=== PATIENT | male | born 1990 | race Caucasian/White ===

== ENCOUNTER 2017-10-08 10:24 | Emergency (ER) | payer OTHER, SELFPAY ==
[2017-10-08 10:53] VITALS: BP 148/98; PULSE 73; RESP 20; TEMP 36.8; O2SAT 98; BMI 31.0
[2017-10-08 11:29] VITALS: BP 142/90; PULSE 72; RESP 20; TEMP 36.2
--- NOTE | 2017-10-08 11:35 | ED_ITS ---
[facility] [place] Impression: URI (upper respiratory infection) Qualifiers: URI type: unspecified URI Qualified Code(s): J06.9 - Acute upper respiratory infection, unspecified Disposition: Home, Self-Care Condition on Discharge: Good Instructions: Sore Throat Additional Instructions: * Monitor Temp. Tylenol and/or Ibuprofen as needed. ER if fever is no less than 101 despite alternating Tylenol and Ibuprofen * Encourage fluids, water, Gatorade, powerade, pedialyte if infant/toddler/or child * Warm salt water gargles for throat irritation *Warm fluids *Sore throat lozenges *Sleep elevated *humidifier or vaporizer Lots of rest Increase fluids, water, Gatorade, powerade *Your throat swab was sent to lab for culture. Those results area typically sent to your primary care physician. Be sure to follow up in 2-3 days if no improvement so they can review those results and treat if necessary If you don? t have primary care I recommend you get one, but in the mean time you will have to return to a walk in clinic Follow up IMMEDIATELY for new or worsening of symptoms OR no noticeable improvement over the next 48-72 hours. 911 immediately for any life threatening symptoms such as chest pain or difficulty breathing Prescriptions: Cefdinir [Omnicef 300mg Capsule] 300 mg PO BID #20 cap Referrals: Ck Kiser MD [Primary Care Provider] - Forms: Work/School Release Time of Disposition: 11:40 Medical Decision Making - Medical Records Medical records reviewed: Yes: I reviewed the patient's medical records. Vital Signs: 10/08/17 10:53 10/08/17 11:29 Temperature 98.2 F 97.2 F L Temperature Source Temporal Artery Scan Pulse Rate 72 Pulse Rate [Right] 73 Respiratory Rate 20 20 Blood Pressure 142/90 Blood Pressure [Right Arm] 148/98 Blood Pressure Mean [Right Arm] 114 Blood Pressure Source [Right Arm] Automatic Cuff Blood Pressure Position [Right Arm] Sitting 02 Sat by Pulse Oximetry 98 Oxygen Delivery Method Room Air - Lab Data Lab results reviewed: Yes: I reviewed the patient's lab results. - Ant Inquiry Pt receiving controlled substance: No Ant was queried for this patient: No - Reevaluation(s) Time: 11:38 Reevaluation #1: Patient rapid strep test negative, patient had obvious exudate on throat, even though rapid test negative, still treating with antibiotic that cover the strep [facility] [place] - General Stated complaint: sore throat white spots on throat Mode of Arrival: Ambulatory Source of Information: Patient Limitations: No Limitations Description of Symptoms (Recalled from Triage Doc. by RN): SORE THROAT X2 DAYS HEENT Symptoms (Recalled from RN notes): Yes Resp Symptoms (Recalled from RN notes): No Skin Symptoms (Recalled from RN notes): No MS Symptoms (Recalled from RN notes): No Functional Status (Recalled from RN notes): N - History of Present Illness Provider Complaint: Patient states that he has had sore throat for several days States that he looked in the mirror and seen white blisters all over his throat and tonsils so he came in to get checked to see what it was - Related Data Previous Rx's Medication Instructions Recorded Cefdinir [Omnicef 300mg Capsule] 300 mg PO BID #20 cap 10/08/17 Allergies Allergy/AdvReac Type Severity Reaction Status Date / Time No Known Allergies Allergy Verified 10/08
[2017-10-08 14:44] LABS: UTC Strep Screen (Rapid) Negative (Negative)
== END 2017-10-08 11:42 | disposition home or self-care (01) ==
PROVIDERS: Emergency Provider Nurse Practitioner; PCP Emergency Medicine
DX: J06.9 Acute upper respiratory infection, unspecified (principal); Z72.0 Tobacco use
CPT/HCPCS: 87880; 99202

== ENCOUNTER 2020-03-15 15:02 | Emergency (ER) | payer OTHER, SELFPAY ==
--- NOTE | 2020-03-15 15:11 | XR_ITS ---
PROCEDURE: XR LUMBAR SPINE 2-3V CLINICAL INDICATION: INJURED BACK LIFTING ON A PT Lifting injury with pain COMPARISON: No exams were available for comparison FINDINGS: No fracture or dislocation. No lytic or blastic change. There is normal mineralization. The joint spaces are well-preserved. No significant degenerative/arthritic changes. No erosive changes evident. Other findings:There is straightening of the lumbar lordosis which could be due to patient positioning or muscle spasm IMPRESSION: Straightening of lumbar lordosis otherwise negative Dictated b Remi West MD 03/15/2020 15:55 Remi West MD in [place] 03/15/2020 15:55
--- NOTE | 2020-03-15 15:11 | HMH.EDUTC ---
[facility] [place] Clinical Impression: Low back strain Qualifiers: Encounter type: initial encounter Qualified Code(s): S39.012A - Strain of muscle, fascia and tendon of lower back, initial encounter Disposition: Home, Self-Care Condition on Discharge: Good Instructions: Low Back Pain, DI for Low Back Pain Additional Instructions: Go home and rest. It would be best if you rested tomorrow too. No heavy lifting. No twisting. Take the oral medications as directed. The muscle relaxer (robaxin) will make you drowsy, so don't drive or operate heavy machinery after taking it. Don't start the oral steroids (medrol dose pack) until tomorrow, since you had the shots in here today. Follow up with your regular doctor. GO TO THE ER FOR ANY WORSENING SYMPTOMS OR CONCERN, ESPECIALLY BOWEL OR BLADDER ISSUES, SADDLE AREA NUMBNESS, FEVER, ETC Prescriptions: methylPREDNISolone [Medrol] 4 mg PO DIRECTED 6 Days #21 tab.ds.pk Transmission Status: Received by [employer] Methocarbamol [Robaxin 500mg Tab] 500 mg PO BIDP PRN #30 tab PRN Reason: Muscle Spasm Transmission Status: Received by [employer] Referrals: Yonatan Hanna [Primary Care Provider] - Forms: Work/School Release Time of Disposition: 15:46 Medical Decision Making - Medical Records Medical records reviewed: No: I reviewed the patient's medical records. - Ant Inquiry Pt receiving controlled substance: No Vital Signs: 03/15/20 15:23 03/15/20 15:57 Temperature 98.3 F 98.3 F Temperature Source Oral Pulse Rate 88 Pulse Rate [Right Brachial] 88 Respiratory Rate 19 19 Blood Pressure 146/91 H Blood Pressure [Right Arm] 146/91 H Blood Pressure Mean [Right Arm] 109 Blood Pressure Source [Right Arm] Automatic Cuff Blood Pressure Position [Right Arm] Sitting 02 Sat by Pulse Oximetry 98 Oxygen Delivery Method Room Air Orders (Tests/Meds): ED MEDICATIONS Discontinued Medications Generic Name Dose Route Start Last Admin Trade Name Freq PRN Reason Stop Dose Admin Ketorolac Tromethamine 60 mg 03/15/20 15:40 03/15/20 15:54 Toradol 60mg/2ml Vial IM 03/15/20 15:41 60 mg ONCE ONE Administration Methylprednisolone Sodium Succinate 125 mg 03/15/20 15:40 03/15/20 15:54 Solu-Medrol 125mg/2ml Vial IM 03/15/20 15:41 125 mg ONCE ONE Administration [facility] [place] HPI - General Stated complaint: WC 8 low back pain Time Seen by Provider: 03/15/20 15:11 - History of Present Illness Provider Complaint: The patient states that while at work on 03/13, he started having low back pain and 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 He denies any numbness of his legs. Since then, he has continued to have low back pain and muscle spasms. - Related Data Previous Rx's Medication Instructions Recorded Methocarbamol [Robaxin 500mg Tab] 500 mg PO BIDP PRN #30 tab 03/15/20 methylPREDNISolone [Medrol] 4 mg PO DIRECTED 6 Days #21 03/15/20 tab.ds.pk Allergies Allergy/AdvReac Type Severity Reaction Status Date / Time No Known Allergies Allergy Verified 11/10/18 19:48 [facility] History - Hepatitis A Screen Attestation statement:: This patient has been screened for Hepatitis A risk factors. I have reviewed the patient's past medical history: Yes - Social History Smoking Status: Current every day smoker Tobacco Type: cigarettes # Packs/Day (cigarettes): 1 Alcohol Intake: never Alcohol Intake Frequency:: a few times a week Occupational Status: employed ROS Obtained: Yes All systems reviewed & no additional complaints - Constitutional Constitutional: Denies chills, Denies fever(s), Denies poor appetite, Denies malaise - Eyes Eyes: Denies eye discharge - ENT Ears, Nose, Mouth, and Throat: Denies dizziness, Denies otalgia, Denies sore throat - Cardiovascular Cardiovascular: Denies chest pain - Respiratory Respiratory: No chest congestion, No cough - G
[2020-03-15 15:23] VITALS: BP 146/91; PULSE 88; RESP 19; TEMP 36.8; O2SAT 98; BMI 34.7
[2020-03-15 15:57] VITALS: BP 146/91; PULSE 88; RESP 19; TEMP 36.8; O2SAT 98
== END 2020-03-15 16:07 | disposition home or self-care (01) ==
PROVIDERS: Emergency Provider Nurse Practitioner Family; PCP Nurse Practitioner Family
DX: S39.012A Strain of muscle, fascia and tendon of lower back, initial encounter (principal); X50.0XXA Overexertion from strenuous movement or load, initial encounter; Y92.69 Other specified industrial and construction area as the place of occurrence of the external cause; Y99.0 Civilian activity done for income or pay; F17.210 Nicotine dependence, cigarettes, uncomplicated
CPT/HCPCS: 72100; 96372; 99202

== ENCOUNTER 2020-04-25 18:34 | Emergency (ER) | payer MEDICAID, SELFPAY ==
[2020-04-25 18:55] VITALS: BP 143/87; PULSE 88; RESP 19; TEMP 36.8; O2SAT 98; BMI 34.7
[2020-04-25 19:01] VITALS: BP 143/87; PULSE 88; RESP 19; TEMP 36.8; O2SAT 98
--- NOTE | 2020-04-25 19:04 | HMH.EDUTC ---
[facility] [place] Disposition Clinical Impression: Ingrown nail of great toe of left foot, Viral syndrome Disposition: Home, Self-Care Condition on Discharge: Good Instructions: DI for Ingrown Toenail, DI for Viral Syndrome Additional Instructions: Follow up with Dr. Desai (podiatry) regarding your toe pain. I put in a referral but you need to call her office and schedule an appointment. Follow up with your regular doctor. Take the oral antibiotic if your toe is not getting better with the topical medication. GO TO THE ER FOR ANY WORSENING SYMPTOMS Prescriptions: Amoxicillin/Potassium Clav [Augmentin 875-125 Tablet] 1 tab PO Q12H 10 Days #20 tab Transmission Status: Pending to [employer] # Mupirocin [Bactroban 2% Ointment 22gm tube] 1 applicatio TP TID 7 Days #1 tube Transmission Status: Pending to [employer] # Referrals: Yonatan Hanna [Primary Care Provider] - Joleen Desai DPM [Staff Physician] - Time of Disposition: 19:27 Medical Decision Making - Medical Records Medical records reviewed: No: I reviewed the patient's medical records. - Ant Inquiry Pt receiving controlled substance: No Vital Signs: 04/25/20 18:55 04/25/20 19:01 Temperature 98.3 F 98.3 F Temperature Source Oral Pulse Rate 88 Pulse Rate [Left] 88 Respiratory Rate 19 19 Blood Pressure 143/87 H Blood Pressure [Right Arm] 143/87 H Blood Pressure Mean [Right Arm] 105 Blood Pressure Source [Right Arm] Automatic Cuff Blood Pressure Position [Right Arm] Sitting 02 Sat by Pulse Oximetry 98 [facility] [place] HPI - General Stated complaint: L big toe ingrowm Time Seen by Provider: 04/25/20 19:09 Mode of Arrival: Ambulatory Source of Information: Patient Limitations: No Limitations Description of Symptoms (Recalled from Triage Doc. by RN): Ingrown toenail on left big toe. Upper respiratory possible infection. HEENT Symptoms (Recalled from RN notes): No Resp Symptoms (Recalled from RN notes): Yes Skin Symptoms (Recalled from RN notes): Yes MS Symptoms (Recalled from RN notes): No Functional Status (Recalled from RN notes): stable - History of Present Illness Provider Complaint: The patient states that he has been having congestion and sinus drainage for the past 2 days. 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 So, he has had a negative covid test since his symptoms started. He is also havng left great toe pain and swelling. This started approx 2 weeks ago and its been getting worse. He has swelling and redness around the medical nail fold. - Related Data Previous Rx's Medication Instructions Recorded Methocarbamol [Robaxin 500mg Tab] 500 mg PO BIDP PRN #30 tab 03/15/20 methylPREDNISolone [Medrol] 4 mg PO DIRECTED 6 Days #21 03/15/20 tab.ds.pk Amoxicillin/Potassium Clav 1 tab PO Q12H 10 Days #20 tab 04/25/20 [Augmentin 875-125 Tablet] Mupirocin [Bactroban 2% Ointment 1 applicatio TP TID 7 Days #1 tube 04/25/20 22gm tube] Allergies Allergy/AdvReac Type Severity Reaction Status Date / Time No Known Allergies Allergy Verified 04/25/20 19:02 - Worker's Comp Is this a Worker's Comp case?: No Is this an H Worker's Comp?: No Is this a Boni Worker's Comp?: No [facility] History - Hepatitis A Screen Drug use history?: No High risk sexual behaviors?: No History of sexually transmitted infection?: No Currently employed?: No Childcare worker?: No Do you have indoor plumbing?: Yes Do you have electricity?: Yes Attestation statement:: This patient has been screened for Hepatitis A risk factors. I have reviewed the patient's past medical history: Yes Medical History: Denies:: Cancer, Diabetes Mellitus Type 1, Diabetes Mellitus Type 2, Internal Pacemaker, MRSA Other Surgeries: No: Pacemaker Amputation: No Fractures: No - Social History Smoking Status: Current every day smoker Tobacco Type: cigarettes # Packs/Day (cigarettes): 1 Alcohol
== END 2020-04-25 19:34 | disposition home or self-care (01) ==
PROVIDERS: Emergency Provider Nurse Practitioner Family; PCP Nurse Practitioner Family
DX: L60.0 Ingrowing nail (principal); F17.210 Nicotine dependence, cigarettes, uncomplicated
CPT/HCPCS: 99201

== ENCOUNTER → 2020-08-24 14:00 | Outpatient (CLI) | payer OTHER, SELFPAY ==
[2020-08-24 14:44] LABS: Hematocrit 52.1 % (42.0-52.0); Mean Corpuscular HGB Conc 35.8 g/dL (31.8-35.4); Mean Corpuscular Hemoglobin 31.4 pg (27.0-31.2); Mean Corpuscular Volume 87.8 fl (80-94); Platelet Count 254 K/mm3 (142-424); Red Blood Count 5.93 M/mm3 (4.60-6.20); Red Cell Distribution Width 13.1 % (11.5-17.5); White Blood Count 9.6 K/mm3 (4.8-10.8)
[2020-08-24 14:45] LABS: Hemoglobin 18.6 g/dL (14.1-18.0)
[2020-08-24 15:41] LABS: Alanine Aminotransferase 72 U/L (12-78); Albumin Level 5.5 g/dl (3.5-5.0); Albumin/Globulin Ratio 1.5 (1.1-1.8); Alkaline Phosphatase 65 U/L (38-126); Anion Gap 16.1 mEq/L (5-15); Aspartate Amino Transferase 51 U/L (17-59); Blood Urea Nitrogen 15 mg/dl (9-20); Calcium 10.4 mg/dl (8.4-10.2); Carbon Dioxide 26 mmol/L (22.0-30.0); Chloride 101 mmol/L (98-107); Estimated Glomerular Filt Rate 115 ml/min (>60); GFR (African American) 139 ML/MIN (>60); Globulin 3.7 g/dL (1.3-3.2); Glucose 88 mg/dl (74-100); Potassium 4.1 mmoL/L (3.5-5.1); Sodium 139 mmol/L (136-145); Total Protein,Serum 9.2 g/dl (6.3-8.2)
[2020-08-24 16:11] LABS: Thyroid Stimulating Hormone 1.72 uIU/mL (0.465-4.68)
[2020-08-25 10:30] LABS: Vitamin B12 552 pg/mL (239-931)
[2020-09-05 15:40] LABS: 1,25 Dihydroxy Vitamin D 61 pg/mL (.); 1,25-Dihydroxy, Vitamin D-2 <10 pg/mL (.); 1,25-Dihydroxy, Vitamin D-3 58 pg/mL (.)
== END ==
PROVIDERS: Visit Provider Nurse Practitioner Family
DX: R53.83 Other fatigue (principal)
CPT/HCPCS: 36415; 80053; 82607; 82652; 84443; 85014; 85018; 85048; 85049

== ENCOUNTER → 2020-10-11 08:10 | Outpatient (CLI) | payer OTHER, SELFPAY ==
--- NOTE | 2020-10-11 08:14 | CA_ITS ---
APPROVED REPORT Agitator Operator: Kayla Campuzano RVT Study Quality: Good Indications: HTN Risk Factors Hypertension Renal Artery Doppler Origin (R) 126.8/ cm/sec Proximal (R) 142.2/ cm/sec Mid (R) 119.9/ cm/sec Distal (R) 138.7/ cm/sec Renal Aorta Ratio (R) 0.53 Segmental A. (R) 44.6/13.2 cm/sec RI: 0.70 Segmental A. Sup (R) 44.6/13.2 cm/sec Segmental A. Mid (R) 37.2/15.7 cm/sec Segmental A. Inf (R) 27.3/7.4 cm/sec Origin (L) 159.5/ cm/sec Proximal (L) 169.1/ cm/sec Mid (L) 208.1/ cm/sec Distal (L) 144.6/ cm/sec Renal Aorta Ratio (L) 0.00 Segmental A. (L) 57.8/21.1 cm/sec RI: 0.63 Segmental A. Sup (L) 57.8/21.1 cm/sec Segmental A. Mid (L) 57.8/19.7 cm/sec Segmental A. Inf (L) 40.9/18.3 cm/sec Renal Measurements Kidney Size (R) 11.9x1.9 cm Cortical Thickness (R) 1.9 cm Kidney Size (L) 12.2x7.7 cm Cortical Thickness (L) 2.2 cm Findings Study suggests no evidence of stenosis of the right renal artery. Study suggests less than 60% stenosis of the left renal artery. There is a 1.5 X 1.4 cm cyst in the mid left kidney. Conclusion Study suggests no evidence of stenosis of the right renal artery. Study suggests less than 60% stenosis of the left renal artery. There is a 1.5 X 1.4 cm cyst in the mid left kidney. Electronically signed by : Remi West MD 10/11/2020 19:00:55
== END ==
PROVIDERS: PCP Family Medicine; Visit Provider Family Medicine
DX: I10 Essential (primary) hypertension (principal); R53.83 Other fatigue
CPT/HCPCS: 93306; 93976

== ENCOUNTER 2022-10-19 01:24 | Emergency (ER) | payer OTHER, BC, SELFPAY ==
[2022-10-19 01:28] VITALS: BP 146/106; PULSE 106; RESP 16; TEMP 36.6; O2SAT 99; BMI 37.6
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
[2022-10-19 01:36] VITALS: BP 146/98; PULSE 105; RESP 16; TEMP 36.6; O2SAT 98
--- NOTE | 2022-10-19 01:38 | PC.NURSE ---
pt resfused to wear c collar
[2022-10-19 01:40] LABS: Basophils # 0.2 K/mm3 (0-0.2); Basophils % 1.5 % (0.1-2.0); Eosinophils # 0.1 K/mm3 (0.0-0.4); Eosinophils % 0.5 % (0.1-12.0); Hematocrit 51.4 % (42.0-52.0); Hemoglobin 17.6 g/dL (14.1-18.0); Lymphocytes % 30.3 % (10-50); Mean Corpuscular HGB Conc 34.3 g/dL (31.8-35.4); Mean Corpuscular Hemoglobin 30.5 pg (27.0-31.2); Mean Corpuscular Volume 89.1 fl (80-94); Monocytes # 0.3 K/mm3 (0.1-1.0); Monocytes % 3.1 % (1.7-9.3); Neutrophils # 6.4 K/mm3 (1.8-7.8); Neutrophils % 64.5 % (37.0-80.0); Platelet Count 241 K/mm3 (142-424); Red Blood Count 5.77 M/mm3 (4.60-6.20); Red Cell Distribution Width 13.1 % (11.5-17.5)
--- NOTE | 2022-10-19 01:41 | PC.NURSE ---
Patient refuses c-collar. notified. Patient advised of risks of not wearing a c-collar but remains adamant that she does not want one.
[2022-10-19 01:42] LABS: Chloride 102 mmol/L (98-107); Potassium 3.4 mmoL/L (3.5-5.1); Sodium 143 mmol/L (136-145)
[2022-10-19 01:45] LABS: Alanine Aminotransferase 70 U/L (12-78); Albumin Level 5.4 g/dl (3.5-5.0); Albumin/Globulin Ratio 1.4 (1.1-1.8); Alkaline Phosphatase 66 U/L (38-126); Anion Gap 17.4 mEq/L (5-15); Aspartate Amino Transferase 77 U/L (17-59); Bilirubin,Total 0.7 mg/dl (0.2-1.3); Blood Urea Nitrogen 12 mg/dl (9-20); Calcium 9.4 mg/dl (8.4-10.2); Carbon Dioxide 27 mmol/L (22.0-30.0); Creatinine Clearance Estimated 221 mL/min (50-200); Estimated Glomerular Filt Rate 114 ml/min (>60); Ethyl Alcohol 241 mg/dl (0-10); GFR (African American) 137 ML/MIN (>60); Globulin 3.8 g/dL (1.3-3.2); Glucose 126 mg/dl (74-100); Total Protein,Serum 9.2 g/dl (6.3-8.2)
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
[2022-10-19 01:58] VITALS: BMI 37.6
[2022-10-19 03:14] VITALS: BP 155/105; PULSE 118; O2SAT 98
--- NOTE | 2022-10-19 03:15 | PC.NURSE ---
pt and pt's family on reading of ct head results and need for a repeat ct head in 4 hours
--- NOTE | 2022-10-19 03:27 | PC.NURSE ---
ER MD speaking with pt at bedside at this time
[2022-10-19 03:31] VITALS: BP 152/105; PULSE 108; O2SAT 97
--- NOTE | 2022-10-19 03:33 | PC.NURSE ---
Pt states her Tdap is up to date
--- NOTE | 2022-10-19 03:41 | PC.NURSE ---
Patient advised that her ct is recommended to be repeated at 0700. Patient states that that is fine with her and she is willing to wait for the results.
--- NOTE | 2022-10-19 04:41 | PC.NURSE ---
Addendum entered by Alyssia Torres RN 10/19/22 04:45: Please disregard prior note. Note was placed on incorrect patient. Original Note: Contacted Ousmane Jean NP to ask if she would like to go ahead and start IV antibiotics per our sepsis protocol. Ousmane requested 2mg of cefepime to be ordered q12 hr and will start another antibiotic when she places orders.
--- NOTE | 2022-10-19 05:15 | PC.NURSE ---
Pt assigned to bed 208 at this time
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
[2022-10-19 07:40] VITALS: BP 152/90; PULSE 103; RESP 16; TEMP 36.7; O2SAT 97
== END 2022-10-19 07:45 | disposition home or self-care (01) ==
PROVIDERS: Emergency Provider Emergency Medicine; PCP Family Medicine
DX: I62.01 Nontraumatic acute subdural hemorrhage (principal); V89.2XXA Person injured in unspecified motor-vehicle accident, traffic, initial encounter
CPT/HCPCS: 70450; 71046; 72170; 80053; 85025; 96374; 99284; 99285

== ENCOUNTER → 2023-03-19 10:09 | Outpatient (CLI) | payer BC, SELFPAY ==
[2023-03-19 10:54] LABS: Basophils # 0.1 K/mm3 (0-0.2); Basophils % 0.7 % (0.1-2.0); Eosinophils # 0.1 K/mm3 (0.0-0.4); Eosinophils % 1.3 % (0.1-12.0); Hematocrit 47.1 % (37.0-47.0); Lymphocytes # 1.9 K/mm3 (0.7-4.5); Lymphocytes % 26.7 % (10-50); Mean Corpuscular HGB Conc 33.9 g/dL (31.8-35.4); Mean Corpuscular Hemoglobin 30.3 pg (27.0-31.2); Mean Corpuscular Volume 89.3 fl (81-99); Mean Platelet Volume 8.3 fl (7.4-10.4); Monocytes # 0.3 K/mm3 (0.1-1.0); Monocytes % 4.9 % (1.7-9.3); Neutrophils # 4.6 K/mm3 (1.8-7.8); Neutrophils % 66.4 % (37.0-80.0); Platelet Count 223 K/mm3 (142-424); Red Blood Count 5.27 M/mm3 (4.20-5.40); Red Cell Distribution Width 13.1 % (11.5-17.5)
[2023-03-19 11:28] LABS: Chloride 102 mmol/L (98-107); Potassium 4.5 mmoL/L (3.5-5.1); Sodium 142 mmol/L (136-145)
[2023-03-19 11:30] LABS: Alanine Aminotransferase 77 U/L (12-78); Aspartate Amino Transferase 52 U/L (14-36); Blood Urea Nitrogen 10 mg/dl (7-17); Estimated Glomerular Filt Rate 98 ml/min (>60); GFR (African American) 119 ML/MIN (>60)
[2023-03-19 11:31] LABS: Albumin Level 4.4 g/dl (3.5-5.0); Albumin/Globulin Ratio 1.3 (1.1-1.8); Alkaline Phosphatase 73 U/L (38-126); Anion Gap 15.5 mEq/L (5-15); Bilirubin,Total 0.7 mg/dl (0.2-1.3); Calcium 9.7 mg/dl (8.4-10.2); Carbon Dioxide 29 mmol/L (22.0-30.0); Chol/HDL Ratio 7.3 (1-3.5); Cholesterol 183 mg/dl (140-200); Globulin 3.3 g/dL (1.3-3.2); Glucose 115 mg/dl (74-100); HDL Cholesterol 25 mg/dl (40-60); Total Protein,Serum 7.7 g/dl (6.3-8.2); Triglycerides 275 mg/dl (30-150); VLDL Cholesterol 55 mg/dL (0-40)
[2023-03-19 11:42] LABS: Direct LDL Cholesterol 97.91 mg/dL (100-129)
[2023-03-19 11:47] LABS: Triiodothryronine (T3) Uptake 34 % (23.5-40.5)
[2023-03-19 11:48] LABS: Free Thyroxine Index 2.7 ug/dL (5.93-13.13)
[2023-03-19 11:52] LABS: Hemoglobin A1C 5.5 % (4.0-6.0)
[2023-03-19 11:58] LABS: 25-OH Vitamin D, Total 44.5 ng/mL (30-100)
[2023-03-19 12:01] LABS: Thyroid Stimulating Hormone 2.62 uIU/mL (0.465-4.68)
== END ==
LOC: LAB 10:09
PROVIDERS: PCP Student in an Organized Health Care Education/Training Program; Visit Provider Student in an Organized Health Care Education/Training Program
DX: I10 Essential (primary) hypertension (principal); R73.9 Hyperglycemia, unspecified; E66.9 Obesity, unspecified; Z68.38 Body mass index [BMI] 38.0-38.9, adult
CPT/HCPCS: 36415; 80053; 80061; 82306; 83036; 84436; 84443; 84479; 85025

== ENCOUNTER → 2023-03-26 10:31 | Outpatient (CLI) | payer BC, SELFPAY ==
--- NOTE | 2023-03-26 10:38 | CA_ITS ---
FINAL REPORT TECHNIQUE: Grayscale, color Doppler and duplex Doppler ultrasound of the kidneys, aorta and renal arteries was performed. Multiple velocities were measured. CLINICAL HISTORY: HTN, h/o JESUS COMPARISON: None FINDINGS: Aorta velocity: 118 cm/sec Right kidney: 11.9 cm. No evidence of hydronephrosis or mass. Right intrarenal RI: 0.56-0.63 Right renal artery velocity: 140 cm/sec. Right RAR (Renal artery-Aortic Ratio): 1.19 Left Kidney: 12.0 cm. No evidence of hydronephrosis or mass. Left intrarenal RI: 0.56-0.62 Left renal artery velocity: 211 cm/sec. Left RAR (Renal Artery-Aortic Ratio): 1.79 IMPRESSION: Elevated velocity of the left renal artery. Less than 60% renal artery stenosis. Consider correlation with CT angiogram or postcontrast MR angiogram. Reviewed, Interpreted and Dictated by Vernon Koehler III, MD Transcribed by Rubina Murphy Authenticated and [facility]
== END ==
PROVIDERS: PCP Student in an Organized Health Care Education/Training Program; Visit Provider Student in an Organized Health Care Education/Training Program
DX: I10 Essential (primary) hypertension (principal); Z86.79 Personal history of other diseases of the circulatory system
CPT/HCPCS: 93976